=== PATIENT | male | born 1960 | race Caucasian/White ===

== ENCOUNTER 2018-02-10 00:10 | Emergency (ER) | payer SELFPAY ==
[2018-02-10] MEDS ORDERED: AMOXICILLIN/POT 875/125 1 EACH PO ONE (00:37)
[2018-02-10 00:38] VITALS: BP 122/84
--- NOTE | 2018-02-10 00:43 | ED Physician Documentation ---
Animal Bite - HISTORIAN Historian: patient - HPI Stated Complaint: Cat Bite >24 hours Chief Complaint: Animal Bite Additional Information: Bitten by 8 week old kitten on one finger and clawed by same kitten on another finger. Occurred yesterday. No other modifying factors or associated signs. Where: home Animal: cat Observation/ Capture of Animal: animal is known, can be observed Context of Attack: animal approached - ROS CONST: none - PAST HX Past History: none Allergies/Adverse Reactions: Allergies Allergy/AdvReac Type Severity Reaction Status Date / Time No Known Allergies Allergy Verified 12/08/13 18:49 Home Medications: Ambulatory Orders Medication Instructions Recorded Amoxicillin/Potassium Clav 1 each PO Q12H #20 tablet 02/10/18 [Augmentin 875Mg/125Mg] - SOCIAL HX Smoking History: non-smoker - FAMILY HX Family History: no significant history - VITAL SIGNS Vital Signs: Vital Signs Temp Pulse Resp BP Pulse Ox 97 F L 78 18 122/84 98 02/10/18 00:10 02/10/18 00:10 02/10/18 00:10 02/10/18 00:10 02/10/18 00:10 - REVIEWED ASSESSMENTS Nursing Assessment Reviewed: Yes Vitals Reviewed: Yes ED Results Lab/Radiology - Orders Orders: ED Orders Category Date Time Status Amoxicillin/Potassium Clav [Augmentin 875Mg/125Mg] Med 02/10/18 00:37 Once 1 each PO NOW ONE Animal Bite Physical Exam - Physical Exam General Appearance: no acute distress, alert Skin: intact Neuro/Vascular/Tendon: no vascular compromise Psych: mood/affect nml HEENT: atraumatic Neck: uninjured, nml inspection Back: other (erect posture, movements w/o pain) Extremities: uninjured, nml inspection, other (some mild erythema distal index finger right hand. Mild erythema mid lateral third finger left hand) Discharge Clincal Impression: Cat bite Qualifiers: Encounter type: initial encounter Qualified Code(s): W55.01XA - Bitten by cat, initial encounter Prescriptions: Amoxicillin/Potassium Clav [Augmentin 875Mg/125Mg] 1 each PO Q12H #20 tablet Referrals: Primary Doctor,No [Primary Care Provider] - 2 Days Condition: Good Disposition: 01 HOME, SELF-CARE Decision to Admit: NO Decision Time: 00:45
== END 2018-02-10 00:44 | disposition home or self-care (01) ==
LOC: ED 00:10
DX: L53.9 Erythematous condition, unspecified (principal); W55.01XA Bitten by cat, initial encounter; Y92.9 Unspecified place or not applicable; Y93.K9 Activity, other involving animal care; Y99.9 Unspecified external cause status
CPT/HCPCS: 99283